=== PATIENT | male | born 1935 | race Caucasian/White ===

== ENCOUNTER → 2017-11-29 | Outpatient (CLI) | payer MEDICARE, OTHER ==
[~2017-11-29] MED LIST: ALLO-119 PO; ALLO-2 PO; ASCO500C9 PO; CHOL10005 PO; FLU60SYR30 IM ONLY; FLUT16SP19 NS; HYDR12.556 PO; HYDR12.561 PO; HYDR30CR10 TP; LORA-629 PO; MULT-1335 PO; OMEG-5 PO; PNEI IM; POTA-23 PO; POTA10CA40 PO; PRAV20TA65 PO; TERA10CA44 PO; UBID100C48 PO; [UNRECOGNIZED DRUG - CODE] PO; [UNRECOGNIZED DRUG - CODE] PO
== END ==
LOC: LAB 08:12
PROVIDERS: ATTEND Nurse Practitioner Primary Care
DX: E78.5 Hyperlipidemia, unspecified (principal); R73.01 Impaired fasting glucose
CPT/HCPCS: 36415; 82040; 82247; 82310; 82374; 82435; 82465; 82565; 82947; 83036; 83718; 84075; 84132; 84155; 84295; 84450; 84460; 84478; 84520

== ENCOUNTER 2017-12-20 08:15 | Outpatient (RCR) | payer MEDICARE, OTHER ==
--- NOTE | 2017-12-13 14:28 | PT INITIAL EVALUATION ---
MEDICAL DIAGNOSIS: Right knee gives way, L foot drop, frequent falls TREATMENT DIAGNOSIS: same, altered gait DATE OF ONSET: 07/15/07 SUBJECTIVE: Bijan Ford presents to physical therapy with complaints of frequent falls as a result of his R knee giving out on him when he ambulates over uneven surfaces, or twists, or turns while ambulating. He reports that there are no current warning signs prior to a fall and states that he has been falling at least 2X/month with the most recent being in [employer]. 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 As a result, of the R knee swelling he had to quit physical therapy since he could not walk and it affected him for approximately 2 weeks. He reports that he would like a brace to prevent falls and help provide stability to his R LE. He reports that he does have an AFO for his L LE due to foot drop. He states that if he does not wear his L LE brace it results in bruised toes since he has L foot drop. He reports that he walks daily with walking sticks. REHAB PROBLEM LIST: Decreased ROM Decreased Strength Decreased Endurance Decreased Function Decreased ADL's Decreased Gait PREVIOUS MEDICAL HISTORY: See EMR OCCUPATION: Retired OBJECTIVE: Posture: He demonstrated forward head, B rounded shoulders, increased thoracic kyphosis, and decreased lumbar lordosis. ROM: He demonstrated significant reduction of R hip AROM into flexion (he could only complete 1/4 of his full motion actively). Other than that, he demonstrated full AROM of B hip, knee, and ankle motions with the exception of his L ankle due to foot drop were full AROM. Strength: R hip flexion, R quad: 2/5. R knee flexion, R hip extension, R hip adduction, R ankle PF: 5/5. R ankle DF and R hip abduction: 4/5. L hip flexion , extension, abduction, L knee flexion, and extension: 5/5. L ankle DF/PF: 0/ 5. Special Tests: He demonstrated primarily using L LE for stability as he transitioned from sitting to standing. Mobility: Independent Gait: He demonstrated the following gait mechanics: R knee hyperextension in stance phases of gait, increased base of support, good B foot clearance, increased lateral trunk movements, decreased pelvic rotation, decreased R hip flexion, and L LE dominant during all phases of gait. ASSESSMENT: Bijan will benefit from skilled physical therapy to improve function and QOL following a streetcar conductor consulting with him to determine the most appropriate bracing for him to prevent R knee hyperextension and his frequent falls. Due to the post-polio and the significant weakness in his R hip flexion and R knee extension, he will need some extensive bracing to prevent falls as physical therapy will not be able to increase muscle strength as it has not improved it in the past. Therefore, I recommend that Bijan consults with Garth whitman [employer] (which is a streetcar conductor) to find the best bracing option for his R LE to prevent R knee hyperextension, to prevent R knee buckling, and to prevent future falls. Short Term Goals 2 weeks: Pt will demonstrate improved gait mechanics with R LE brace donned preventing R knee hyperextension and preventing his R knee from giving out to improve function and QOL. Patient's Goals stop the falls PLAN: Patient to be seen for Manual Therapy/STM/MET Strengthening/condition Range of Motion Spinal Stabilization Work Hardening/Cond Stretching Neuromuscular Re-ed Closed Chain Program Posture/Body mechanics Gait Trg/Balance Trg Home Exercise Program Therapeutic Activities 2x/Week for 2 Weeks If you have any questions, comments, or concerns about this report or plan, please contact me at . Thank you, Jalen Petit, PT, DPT MTDD
[2017-12-26] MEDS ORDERED: [UNRECOGNIZED DRUG - CODE] PO (13:45)
[2018-01-24] MEDS ORDERED: PRAV20TA65 PO (08:58)
[2018-01-31] MEDS ORDERED: TERA10CA44 PO (08:29)
== END 2017-12-20 18:00 | disposition home or self-care (01) ==
LOC: PT 08:15
PROVIDERS: ATTEND Nurse Practitioner Primary Care
DX: M25.361 Other instability, right knee (principal); M21.372 Foot drop, left foot; R29.6 Repeated falls; R26.89 Other abnormalities of gait and mobility
CPT/HCPCS: 97161

== ENCOUNTER → 2018-05-30 | Outpatient (CLI) | payer MEDICARE, OTHER ==
[~2018-05-30] MED LIST changes: +FLU180SY11 IM
== END ==
LOC: LAB 09:35
PROVIDERS: ATTEND Nurse Practitioner Primary Care
DX: Z12.5 Encounter for screening for malignant neoplasm of prostate (principal); E78.5 Hyperlipidemia, unspecified
CPT/HCPCS: 36415; G0103; 82040; 82247; 82310; 82374; 82435; 82465; 82565; 82947; 83718; 84075; 84132; 84153; 84155; 84295; 84450; 84460; 84478; 84520

== ENCOUNTER → 2018-12-25 | Outpatient (CLI) | payer MEDICARE, OTHER ==
[~2018-12-25] MED LIST changes: +ASPI81TA94 PO
== END ==
LOC: LAB 08:08
PROVIDERS: ATTEND Nurse Practitioner Primary Care
DX: N18.9 Chronic kidney disease, unspecified (principal)
CPT/HCPCS: 36415; 82040; 82247; 82310; 82374; 82435; 82465; 82565; 82947; 83036; 83718; 84075; 84132; 84155; 84295; 84450; 84460; 84478; 84520